=== PATIENT | female | born 1950 | race Caucasian/White ===

== ENCOUNTER 2016-10-29 17:08 | Emergency (ER) | payer MEDICARE, OTHER ==
[~2016-10-29 17:08] MED LIST: ASPIRIN EC81 MG PO; BRILINTA90 MG PO; GLUCOPHAGE 500500 MG PO; HYDREA CAP 500500 MG PO; IMDUR ER TAB 3030 MG PO; LANTUS100 UNIT/1 SC; LIPITOR TAB 2020 MG PO; LOPRESSOR 25 MG25 MG PO; NEURONTIN 400400 MG PO; NITROSTAT0.4 MG SL; PLAVIX 75 MG TA75 MG PO; PREVACID30 MG PO; ZESTRIL20 MG PO; ZITHROMAX250 MG PO; ZYLOPRIM 100 M100 MG PO; [UNRECOGNIZED DRUG - REMARK]
[2016-10-29 17:32] LABS: HEMOGLOBIN 13.1 gm/dl (12.3-15.3); RED BLOOD COUNT 4.41 M/UL (4.00-5.10); WHITE BLOOD COUNT 18.7 K/UL (4.5-11.0)
[2017-02-14] MEDS ORDERED: PLAVIX 75 MG TA75 MG PO (20:25)
[2017-02-14] MEDS ORDERED: CRESTOR40 MG PO (20:26)
== END 2016-10-29 17:37 | disposition admitted as inpatient to this hospital (09) ==
LOC: ER1 17:08
PROVIDERS: Emergency Medicine
DX: I21.09 ST elevation (STEMI) myocardial infarction involving other coronary artery of anterior wall (principal); E11.9 Type 2 diabetes mellitus without complications; I10 Essential (primary) hypertension; E78.5 Hyperlipidemia, unspecified; F17.200 Nicotine dependence, unspecified, uncomplicated; Z90.49 Acquired absence of other specified parts of digestive tract
CPT/HCPCS: 36415; 80053; 82550; 82553; 83874; 84484; 85025; 85347; 85610; 85730; 92920; 93005; 96374; 99285; C1725; C1757; C1769; C1887; J0461; J0583; J1327; J1644; J2250; J3010; J7040; Q9965

== ENCOUNTER 2020-08-22 22:06 | Inpatient (IN) | payer MEDICARE, OTHER ==
[~2020-08-22] VITALS: Ht 154.9 cm; Wt 72.3 kg
[~2020-08-22 22:06] MED LIST changes: +AMIODARONE HCL200 MG PO; +ATORVASTATIN CA20 MG PO; +BRILINTA PO; +CRESTOR 10 MG T10 MG PO; +CRESTOR40 MG PO; +DOXYCYCLINE HY100 MG PO; +DULERA 100 MCG8.8 GM INH; +ELIQUIS 5 MG TAB5 MG PO; +FERROUS SULFAT325 M2 PO; +FOSAMAX70 MG PO; +GLUCOTROL XL 22.5 MG PO; +ISOSORBIDE MONO30 MG PO; +KEFLEX250 MG PO; +LASIX20 MG PO; +LEVAQUIN500 MG PO; +MACROBID 100 M100 MG PO; +MICROZIDE12.5 MG PO; +NEURONTIN300 MG PO; +NEURONTIN600 MG PO; +NICOTINE PATCH1 EAC2 TOP; +NORCO 7.5-3251 EACH PO; +OMNICEF 300 MG300 MG PO; +TOPROL XL25 MG PO; +VENTOLIN HFA 66.7 GM INH
[2020-08-23 01:35] LABS: HEMOGLOBIN 11.8 gm/dl (12.3-15.3); RED BLOOD COUNT 4.32 M/UL (4.00-5.10); WHITE BLOOD COUNT 21.3 K/UL (4.5-11.0)
[2020-08-23 17:38] LABS: HEMOGLOBIN 12.4 gm/dl (12.3-15.3); RED BLOOD COUNT 4.5 M/UL (4.00-5.10)
[2020-08-23 17:39] LABS: WHITE BLOOD COUNT 12.4 K/UL (4.5-11.0)
[2020-08-24 01:28] LABS: HEMOGLOBIN 11.5 gm/dl (12.3-15.3); RED BLOOD COUNT 4.25 M/UL (4.00-5.10); WHITE BLOOD COUNT 13.4 K/UL (4.5-11.0)
[2020-08-25 04:50] LABS: HEMOGLOBIN 10.3 gm/dl (12.3-15.3); WHITE BLOOD COUNT 13.8 K/UL (4.5-11.0)
[2020-08-25 04:55] LABS: RED BLOOD COUNT 3.75 M/UL (4.00-5.10)
[2020-08-26 05:01] LABS: HEMOGLOBIN 11.4 gm/dl (12.3-15.3)
[2020-08-26 05:08] LABS: WHITE BLOOD COUNT 19.3 K/UL (4.5-11.0)
[2020-08-26 05:09] LABS: RED BLOOD COUNT 4.19 M/UL (4.00-5.10)
[2020-08-26 08:57] LABS: URINE TOTAL PROTEIN 115 mg/dl
[2020-08-27 03:07] LABS: HEMOGLOBIN 11.1 gm/dl (12.3-15.3); RED BLOOD COUNT 4.12 M/UL (4.00-5.10); WHITE BLOOD COUNT 17.1 K/UL (4.5-11.0)
[2020-08-28 05:50] LABS: HEMOGLOBIN 11.1 gm/dl (12.3-15.3); RED BLOOD COUNT 4.11 M/UL (4.00-5.10)
[2020-08-28 11:13] LABS: HBSAG SCREEN Negative (Negative); HEP B CORE AB, TOT Negative (Negative); HEP C VIRUS AB <0.1 (0.0-0.9)
[2020-08-28 12:13] LABS: ANTISTREPTOLYSIN O AB 332.9 IU/mL (0.0-200.0); COMPLEMENT C3, SERUM 178 mg/dL (82-167); COMPLEMENT C4, SERUM 45 mg/dL (12-38)
[2020-08-28 15:13] LABS: ANTI-DSDNA ANTIBODIES 2 IU/mL (0-9)
[2020-08-28 16:14] LABS: A/G RATIO 0.8 (0.7-1.7); ALBUMIN 2.5 g/dL (2.9-4.4); ALPHA-1-GLOBULIN 0.5 g/dL (0.0-0.4); ALPHA-2-GLOBULIN 1.3 g/dL (0.4-1.0); BETA GLOBULIN 0.9 g/dL (0.7-1.3); GAMMA GLOBULIN 0.7 g/dL (0.4-1.8); GLOBULIN, TOTAL 3.4 g/dL (2.2-3.9); IMMUNOGLOBULIN A, QN, SERUM 428 mg/dL (87-352); IMMUNOGLOBULIN G, QN, SERUM 783 mg/dL (586-1602); IMMUNOGLOBULIN M, QN, SERUM 66 mg/dL (26-217); M-SPIKE Not Observed g/dL (Not Observed); PROTEIN, TOTAL, SERUM 5.9 g/dL (6.0-8.5)
[2020-08-29 03:57] LABS: HEMOGLOBIN 11.3 gm/dl (12.3-15.3); RED BLOOD COUNT 4.16 M/UL (4.00-5.10); WHITE BLOOD COUNT 22.3 K/UL (4.5-11.0)
[2020-08-29 09:13] LABS: ATYPICAL PANCA <1:20 titer (Neg:<1:20); CYTOPLASMIC (C-ANCA) <1:20 titer (Neg:<1:20); PERINUCLEAR (P-ANCA) <1:20 titer (Neg:<1:20)
[2020-08-30 03:54] LABS: HEMOGLOBIN 10.2 gm/dl (12.3-15.3); WHITE BLOOD COUNT 26.7 K/UL (4.5-11.0)
[2020-08-30 04:00] LABS: RED BLOOD COUNT 3.73 M/UL (4.00-5.10)
[2020-08-31 04:13] LABS: RED BLOOD COUNT 3.46 M/UL (4.00-5.10); WHITE BLOOD COUNT 24.1 K/UL (4.5-11.0)
[2020-09-01 03:51] LABS: HEMOGLOBIN 9.8 gm/dl (12.3-15.3); RED BLOOD COUNT 3.67 M/UL (4.00-5.10); WHITE BLOOD COUNT 24.4 K/UL (4.5-11.0)
[2020-09-02 04:54] LABS: HEMOGLOBIN 9.4 gm/dl (12.3-15.3); RED BLOOD COUNT 3.53 M/UL (4.00-5.10); WHITE BLOOD COUNT 16.5 K/UL (4.5-11.0)
[2020-09-03 04:10] LABS: HEMOGLOBIN 9.9 gm/dl (12.3-15.3); RED BLOOD COUNT 3.75 M/UL (4.00-5.10); WHITE BLOOD COUNT 18.4 K/UL (4.5-11.0)
[2020-09-04 05:44] LABS: HEMOGLOBIN 9.9 gm/dl (12.3-15.3); RED BLOOD COUNT 3.69 M/UL (4.00-5.10); WHITE BLOOD COUNT 18.7 K/UL (4.5-11.0)
[2020-09-05 06:46] LABS: HEMOGLOBIN 9.6 gm/dl (12.3-15.3); RED BLOOD COUNT 3.7 M/UL (4.00-5.10); WHITE BLOOD COUNT 21.1 K/UL (4.5-11.0)
[2020-09-06 04:53] LABS: HEMOGLOBIN 8.9 gm/dl (12.3-15.3); WHITE BLOOD COUNT 17.6 K/UL (4.5-11.0)
[2020-09-06 04:54] LABS: RED BLOOD COUNT 3.31 M/UL (4.00-5.10)
[2020-09-06 19:09] LABS: QUANTIFERON MITOGEN VALUE 8.88 IU/mL (.); QUANTIFERON NIL VALUE 0.03 IU/mL (.); QUANTIFERON TB1 AG VALUE 0.04 IU/mL (.); QUANTIFERON TB2 AG VALUE 0.03 IU/mL (.); QUANTIFERON-TB GOLD PLUS Negative (Negative)
[2020-09-07 06:00] LABS: HEMOGLOBIN 9.1 gm/dl (12.3-15.3); RED BLOOD COUNT 3.41 M/UL (4.00-5.10); WHITE BLOOD COUNT 16.2 K/UL (4.5-11.0)
--- NOTE | 2020-09-07 15:11 | NUR ---
DR. LOZANO ON THE FLOOR AND SEEN PATIENT, PULSE AT 69.
[2020-09-08 05:59] LABS: HEMOGLOBIN 10.3 gm/dl (12.3-15.3); RED BLOOD COUNT 3.87 M/UL (4.00-5.10); WHITE BLOOD COUNT 14.5 K/UL (4.5-11.0)
[2020-09-09 04:11] LABS: HEMOGLOBIN 9.3 gm/dl (12.3-15.3); RED BLOOD COUNT 3.5 M/UL (4.00-5.10); WHITE BLOOD COUNT 17.6 K/UL (4.5-11.0)
[2020-09-10 05:58] LABS: HEMOGLOBIN 8.6 gm/dl (12.3-15.3); RED BLOOD COUNT 3.18 M/UL (4.00-5.10); WHITE BLOOD COUNT 19.1 K/UL (4.5-11.0)
[2020-09-12 03:43] LABS: HEMOGLOBIN 8.2 gm/dl (12.3-15.3); RED BLOOD COUNT 3.16 M/UL (4.00-5.10)
[2020-09-12 03:56] LABS: WHITE BLOOD COUNT 10.5 K/UL (4.5-11.0)
--- NOTE | 2020-09-12 15:02 | NUR ---
Spoke with LYNDON Rahman re: need for midline. Pt's GFR is 35. Midline/PICC line not approved by Dr. Chaney at present time.
[2020-09-13 05:08] LABS: HEMOGLOBIN 7.7 gm/dl (12.3-15.3); RED BLOOD COUNT 2.94 M/UL (4.00-5.10); WHITE BLOOD COUNT 9.2 K/UL (4.5-11.0)
[2020-09-14 05:52] LABS: HEMOGLOBIN 8.3 gm/dl (12.3-15.3); RED BLOOD COUNT 3.13 M/UL (4.00-5.10); WHITE BLOOD COUNT 11.1 K/UL (4.5-11.0)
[2020-09-15 08:32] LABS: HEMOGLOBIN 8.7 gm/dl (12.3-15.3); RED BLOOD COUNT 3.28 M/UL (4.00-5.10); WHITE BLOOD COUNT 11.1 K/UL (4.5-11.0)
[2020-09-17 04:57] LABS: HEMOGLOBIN 8.2 gm/dl (12.3-15.3); RED BLOOD COUNT 3.12 M/UL (4.00-5.10)
--- NOTE | 2020-09-17 13:00 | NUR ---
SPOKE WITH PATIENT'S DAUGHTER NIKUNJ REJI STATED PATIENT'S HAIR WAS MATTED AND HAD KNOTS IN BEFORE ADMISSION TO HOSPITAL.
--- NOTE | 2020-09-17 16:29 | NUR ---
PER DR. ZAHIRA TRAN ON PLACEMENT OF IJ LINE. SPOKE WITH HIM OVER PHONE TO CONFIRM OKAY ON PLACEMENT.
[2020-09-22 06:10] LABS: HEMOGLOBIN 8.8 gm/dl (12.3-15.3); RED BLOOD COUNT 3.32 M/UL (4.00-5.10); WHITE BLOOD COUNT 10.3 K/UL (4.5-11.0)
[2020-09-28 02:54] LABS: RED BLOOD COUNT 3.02 M/UL (4.00-5.10); WHITE BLOOD COUNT 10.6 K/UL (4.5-11.0)
[2020-09-30 10:37] LABS: HEMOGLOBIN 8.8 gm/dl (12.3-15.3); RED BLOOD COUNT 3.3 M/UL (4.00-5.10)
[2020-10-02] MEDS ORDERED: ELIQUIS 5 MG TAB5 MG PO (13:15)
[2020-10-02] MEDS ORDERED: LANTUS INS100 UTS/M1 SQ (13:15)
[2020-10-02] MEDS ORDERED: ZYVOX600 MG PO (13:15)
[2020-10-02] MEDS ORDERED: FERROUS SULFAT325 M2 PO (13:15)
[2020-10-02] MEDS ORDERED: CRESTOR 10 MG T10 MG PO (13:15)
[2020-10-02] MEDS ORDERED: TAB-A-VITE TA400 MC1 PO (13:15)
[2020-10-02] MEDS ORDERED: METOPROLOL SUCC50 MG PO (13:15)
[2020-10-02] MEDS ORDERED: VITAMIN B-1100 M1 PO (13:15)
[2020-10-02] MEDS ORDERED: FOLIC ACID 1 MG1 MG PO (13:15)
== END 2020-10-03 16:25 | DRG 871 ==
LOC: ER1 22:06 → CCU 08-23 04:50 → CDU 08-23 04:50 → M/S 08-23 04:50 → CCU 08-23 06:20 → M/S 09-02 10:43 → PROG CARE 09-15 20:01 → M/S 09-15 21:07
PROVIDERS: Family Medicine; Hospitalist; Internal Medicine; Internal Medicine Nephrology; Internal Medicine Pulmonary Disease; Surgery; ADMIT Internal Medicine
PROC: 5A09457 Assistance with Respiratory Ventilation, 24-96 Consecutive Hours, Continuous Positive Airway Pressure (ICD-10-PCS; 2020-08-23)
PROC: B24BZZZ Ultrasonography of Heart with Aorta (ICD-10-PCS; principal; 2020-08-24)
PROC: B24BZZZ Ultrasonography of Heart with Aorta (ICD-10-PCS; 2020-09-04)
DX: A41.02 Sepsis due to Methicillin resistant Staphylococcus aureus (principal); J96.01 Acute respiratory failure with hypoxia; R65.21 Severe sepsis with septic shock; J15.212 Pneumonia due to Methicillin resistant Staphylococcus aureus; G93.41 Metabolic encephalopathy; I26.99 Other pulmonary embolism without acute cor pulmonale; N17.0 Acute kidney failure with tubular necrosis; G92 Toxic encephalopathy; I50.43 Acute on chronic combined systolic (congestive) and diastolic (congestive) heart failure; J44.0 Chronic obstructive pulmonary disease with (acute) lower respiratory infection; E11.52 Type 2 diabetes mellitus with diabetic peripheral angiopathy with gangrene; I96 Gangrene, not elsewhere classified; E87.2 Acidosis; F11.13 Opioid abuse with withdrawal; J44.1 Chronic obstructive pulmonary disease with (acute) exacerbation; I13.0 Hypertensive heart and chronic kidney disease with heart failure and stage 1 through stage 4 chronic kidney disease, or unspecified chronic kidney disease; N30.01 Acute cystitis with hematuria; M62.82 Rhabdomyolysis; B37.0 Candidal stomatitis; E87.1 Hypo-osmolality and hyponatremia; T40.601A Poisoning by unspecified narcotics, accidental (unintentional), initial encounter; A41.51 Sepsis due to Escherichia coli [E. coli]; T43.621A Poisoning by amphetamines, accidental (unintentional), initial encounter; I25.5 Ischemic cardiomyopathy; E11.65 Type 2 diabetes mellitus with hyperglycemia; Z20.822 Contact with and (suspected) exposure to COVID-19; I25.10 Atherosclerotic heart disease of native coronary artery without angina pectoris; R00.1 Bradycardia, unspecified; E87.5 Hyperkalemia; E11.22 Type 2 diabetes mellitus with diabetic chronic kidney disease; N18.30 Chronic kidney disease, stage 3 unspecified; I48.0 Paroxysmal atrial fibrillation; F17.210 Nicotine dependence, cigarettes, uncomplicated; R94.31 Abnormal electrocardiogram [ECG] [EKG]; D64.9 Anemia, unspecified; G89.4 Chronic pain syndrome; Z66 Do not resuscitate; R80.9 Proteinuria, unspecified; R82.4 Acetonuria; R29.810 Facial weakness; D47.3 Essential (hemorrhagic) thrombocythemia; F32.9 Major depressive disorder, single episode, unspecified; E78.5 Hyperlipidemia, unspecified; Z90.49 Acquired absence of other specified parts of digestive tract; I25.2 Old myocardial infarction; Z86.73 Personal history of transient ischemic attack (TIA), and cerebral infarction without residual deficits; Z79.01 Long term (current) use of anticoagulants; Z95.5 Presence of coronary angioplasty implant and graft; Z82.49 Family history of ischemic heart disease and other diseases of the circulatory system; Z79.899 Other long term (current) drug therapy
CPT/HCPCS: ECHO; 36415; 36600; 70450; 70551; 71045; 71250; 74230; 80048; 80053; 80202; 80307; 81001; 82009; 82550; 82553; 82565; 82570; 82784; 82803; 82962; 83036; 83520; 83605; 83615; 83735; 83874; 83880; 83883; 84100; 84155; 84156; 84165; 84484; 85018; 85025; 85027; 85610; 85652; 85730; 86038; 86060; 86140; 86160; 86162; 86225; 86256; 86334; 86704; 86706; 86708; 86803; 87040; 87070; 87077; 87081; 87086; 87186; 87205; 87340; 92526; 92610; 92611-GN; 93005; 93306; 93925; 94640; 94660; 94664; 94760; 96365; 96372; 96376; 97110; 97110-GP-CQ; 97163; 97166; 97530; 97530-GP-CQ; 97535; 99285; A6212; C9113; J0456; J0696; J1205; J1335; J1630; J1644; J1940; J2020; J2060; J2185; J2310; J2543; J2930; J2997; J3370; J3411; J3486; J7030; J7040; J7050; J7070; U0002

== ENCOUNTER 2020-10-10 09:57 | Observation (INO) | payer MEDICARE, OTHER ==
[~2020-10-10] VITALS: Ht 161.3 cm; Wt 73.5 kg
[~2020-10-10 09:57] MED LIST changes: +FOLIC ACID 1 MG1 MG PO; +LANTUS INS100 UTS/M1 SQ; +METOPROLOL SUCC50 MG PO; +TAB-A-VITE TA400 MC1 PO; +VITAMIN B-1100 M1 PO; +ZYVOX600 MG PO
[2020-10-10 14:39] LABS: HEMOGLOBIN 8.7 gm/dl (12.3-15.3); RED BLOOD COUNT 3.22 M/UL (4.00-5.10); WHITE BLOOD COUNT 16.2 K/UL (4.5-11.0)
[2020-10-10] MEDS ORDERED: ZYVOX600 MG PO (20:36)
[2020-10-10] MEDS ORDERED: FISH OIL 500 M1 EAC2 PO (20:36)
[2020-10-10] MEDS ORDERED: WOMEN'S 50 PLU1 EACH PO (20:37)
[2020-10-10] MEDS ORDERED: TYLENOL 500 MG500 MG PO (20:37)
[2020-10-13 04:55] LABS: WHITE BLOOD COUNT 12.2 K/UL (4.5-11.0)
[2020-10-13 04:57] LABS: RED BLOOD COUNT 2.6 M/UL (4.00-5.10)
[2020-10-13 04:58] LABS: HEMOGLOBIN 6.9 gm/dl (12.3-15.3)
[2020-10-14 04:53] LABS: HEMOGLOBIN 8.4 gm/dl (12.3-15.3); WHITE BLOOD COUNT 12.8 K/UL (4.5-11.0)
[2020-10-14 04:58] LABS: RED BLOOD COUNT 3.12 M/UL (4.00-5.10)
[2020-10-16] MEDS ORDERED: HYDROCODON-ACE1 EAC2 PO (10:27)
[2020-10-16 11:33] LABS: HEMOGLOBIN 8.7 gm/dl (12.3-15.3); RED BLOOD COUNT 3.16 M/UL (4.00-5.10); WHITE BLOOD COUNT 10.4 K/UL (4.5-11.0)
== END 2020-10-16 18:50 ==
LOC: ER1 09:57 → MED SURG 4 14:06 → CDU 14:06 → MED SURG 4 14:06
PROVIDERS: Internal Medicine; Physician Assistant; Physician Assistant Medical; ADMIT Internal Medicine
DX: S82.842A Displaced bimalleolar fracture of left lower leg, initial encounter for closed fracture (principal); I13.0 Hypertensive heart and chronic kidney disease with heart failure and stage 1 through stage 4 chronic kidney disease, or unspecified chronic kidney disease; E11.22 Type 2 diabetes mellitus with diabetic chronic kidney disease; I50.22 Chronic systolic (congestive) heart failure; N18.4 Chronic kidney disease, stage 4 (severe); I25.5 Ischemic cardiomyopathy; J44.9 Chronic obstructive pulmonary disease, unspecified; D63.1 Anemia in chronic kidney disease; E11.52 Type 2 diabetes mellitus with diabetic peripheral angiopathy with gangrene; I96 Gangrene, not elsewhere classified; E11.621 Type 2 diabetes mellitus with foot ulcer; L97.529 Non-pressure chronic ulcer of other part of left foot with unspecified severity; L97.519 Non-pressure chronic ulcer of other part of right foot with unspecified severity; I48.0 Paroxysmal atrial fibrillation; I25.10 Atherosclerotic heart disease of native coronary artery without angina pectoris; I25.2 Old myocardial infarction; Z20.822 Contact with and (suspected) exposure to COVID-19; Z87.01 Personal history of pneumonia (recurrent); Z95.5 Presence of coronary angioplasty implant and graft; Z87.891 Personal history of nicotine dependence; Z98.890 Other specified postprocedural states; Z82.49 Family history of ischemic heart disease and other diseases of the circulatory system; Z79.4 Long term (current) use of insulin; Z79.01 Long term (current) use of anticoagulants; Z79.899 Other long term (current) drug therapy; W19.XXXA Unspecified fall, initial encounter
CPT/HCPCS: 29515; 36415; 36430; 70450; 71045; 73502; 73564; 73610; 80048; 80053; 82272; 82728; 82962; 83540; 83550; 83880; 85025; 85045; 86850; 86900; 86901; 86920; 90471; 96372; 96374; 96376; 97110; 97110-GP-CQ; 97161; 97530; 97530-GP-CQ; 99284; G0378; J2270; J7050; P9016; U0002

== ENCOUNTER → 2020-10-30 | Outpatient (CLI) | payer MEDICARE, OTHER ==
[~2020-10-30] MED LIST changes: +FISH OIL 500 M1 EAC2 PO; +HYDROCODON-ACE1 EAC2 PO; +TYLENOL 500 MG500 MG PO; +WOMEN'S 50 PLU1 EACH PO
== END ==
LOC: KOH-I 13:29
DX: M25.572 Pain in left ankle and joints of left foot (principal); S82.832A Other fracture of upper and lower end of left fibula, initial encounter for closed fracture; S93.05XA Dislocation of left ankle joint, initial encounter
CPT/HCPCS: 73610

== ENCOUNTER → 2020-11-03 | Outpatient (CLI) | payer MEDICARE, OTHER | LOC: WCC 12:57 | DX: I96 Gangrene, not elsewhere classified (principal); L89.890 Pressure ulcer of other site, unstageable; E11.52 Type 2 diabetes mellitus with diabetic peripheral angiopathy with gangrene; J44.9 Chronic obstructive pulmonary disease, unspecified; I48.20 Chronic atrial fibrillation, unspecified; I11.0 Hypertensive heart disease with heart failure; I50.9 Heart failure, unspecified; E11.40 Type 2 diabetes mellitus with diabetic neuropathy, unspecified; E11.59 Type 2 diabetes mellitus with other circulatory complications; I48.91 Unspecified atrial fibrillation; F17.219 Nicotine dependence, cigarettes, with unspecified nicotine-induced disorders; Z79.4 Long term (current) use of insulin; Z91.19 Patient's noncompliance with other medical treatment and regimen; Z80.9 Family history of malignant neoplasm, unspecified; Z82.49 Family history of ischemic heart disease and other diseases of the circulatory system; Z83.3 Family history of diabetes mellitus | CPT/HCPCS: 87070; 87077; 87186; 87205; 97597; 97598 ==

== ENCOUNTER → 2020-11-11 | Outpatient (CLI) | payer MEDICARE, OTHER | LOC: HEART 5 10:46 | DX: R06.02 Shortness of breath (principal); J98.4 Other disorders of lung | CPT/HCPCS: 71046 ==

== ENCOUNTER → 2020-11-17 | Outpatient (CLI) | payer MEDICARE, OTHER | LOC: WCC 13:00 | PROC: 0JBR0ZZ Excision of Left Foot Subcutaneous Tissue and Fascia, Open Approach (ICD-10-PCS; principal; 2020-11-17) | PROC: 0JBQ0ZZ Excision of Right Foot Subcutaneous Tissue and Fascia, Open Approach (ICD-10-PCS; 2020-11-17) | DX: I96 Gangrene, not elsewhere classified (principal); L89.890 Pressure ulcer of other site, unstageable; E11.52 Type 2 diabetes mellitus with diabetic peripheral angiopathy with gangrene; J44.9 Chronic obstructive pulmonary disease, unspecified; I11.0 Hypertensive heart disease with heart failure; I50.9 Heart failure, unspecified; I48.20 Chronic atrial fibrillation, unspecified; E11.40 Type 2 diabetes mellitus with diabetic neuropathy, unspecified; E11.59 Type 2 diabetes mellitus with other circulatory complications; E11.36 Type 2 diabetes mellitus with diabetic cataract; H26.9 Unspecified cataract; I25.10 Atherosclerotic heart disease of native coronary artery without angina pectoris; I25.2 Old myocardial infarction; M19.90 Unspecified osteoarthritis, unspecified site; Z91.19 Patient's noncompliance with other medical treatment and regimen; Z79.01 Long term (current) use of anticoagulants; Z79.4 Long term (current) use of insulin; Z79.899 Other long term (current) drug therapy | CPT/HCPCS: 97597 ==

== ENCOUNTER → 2020-11-27 | Outpatient (CLI) | payer MEDICARE, OTHER | LOC: KOH-I 13:53 | DX: S82.832D Other fracture of upper and lower end of left fibula, subsequent encounter for closed fracture with routine healing (principal) | CPT/HCPCS: 73610 ==

== ENCOUNTER → 2020-12-01 | Outpatient (CLI) | payer MEDICARE, OTHER | LOC: WCC 13:00 | DX: E11.52 Type 2 diabetes mellitus with diabetic peripheral angiopathy with gangrene (principal); I96 Gangrene, not elsewhere classified; L89.890 Pressure ulcer of other site, unstageable; E11.40 Type 2 diabetes mellitus with diabetic neuropathy, unspecified; E11.59 Type 2 diabetes mellitus with other circulatory complications; I11.0 Hypertensive heart disease with heart failure; I50.9 Heart failure, unspecified; J44.9 Chronic obstructive pulmonary disease, unspecified; I48.20 Chronic atrial fibrillation, unspecified; M79.661 Pain in right lower leg; M79.662 Pain in left lower leg; Z91.19 Patient's noncompliance with other medical treatment and regimen; Z79.4 Long term (current) use of insulin; Z79.01 Long term (current) use of anticoagulants; Z79.899 Other long term (current) drug therapy | CPT/HCPCS: 97597; 97598 ==

== ENCOUNTER → 2020-12-15 | Outpatient (CLI) | payer MEDICARE, OTHER | LOC: WCC 13:00 | DX: E11.52 Type 2 diabetes mellitus with diabetic peripheral angiopathy with gangrene (principal); L89.620 Pressure ulcer of left heel, unstageable; L89.890 Pressure ulcer of other site, unstageable; E11.40 Type 2 diabetes mellitus with diabetic neuropathy, unspecified; I11.0 Hypertensive heart disease with heart failure; I50.9 Heart failure, unspecified; J44.9 Chronic obstructive pulmonary disease, unspecified; I48.20 Chronic atrial fibrillation, unspecified; Z79.4 Long term (current) use of insulin; Z91.19 Patient's noncompliance with other medical treatment and regimen | CPT/HCPCS: 87070; 87077; 87186; 87205 ==

== ENCOUNTER → 2020-12-18 | Outpatient (CLI) | payer MEDICARE, OTHER | LOC: KOH-I 14:06 | DX: S82.832A Other fracture of upper and lower end of left fibula, initial encounter for closed fracture (principal) | CPT/HCPCS: 73610 ==

== ENCOUNTER → 2020-12-23 | Outpatient (CLI) | payer MEDICARE, OTHER | LOC: WCC 11:30 | DX: E11.621 Type 2 diabetes mellitus with foot ulcer (principal); L97.429 Non-pressure chronic ulcer of left heel and midfoot with unspecified severity; L97.519 Non-pressure chronic ulcer of other part of right foot with unspecified severity; I11.0 Hypertensive heart disease with heart failure; I50.9 Heart failure, unspecified; E11.59 Type 2 diabetes mellitus with other circulatory complications; E11.40 Type 2 diabetes mellitus with diabetic neuropathy, unspecified; E11.52 Type 2 diabetes mellitus with diabetic peripheral angiopathy with gangrene; J44.9 Chronic obstructive pulmonary disease, unspecified; I48.20 Chronic atrial fibrillation, unspecified; Z79.4 Long term (current) use of insulin; Z91.19 Patient's noncompliance with other medical treatment and regimen; M79.661 Pain in right lower leg; M79.662 Pain in left lower leg | CPT/HCPCS: 97597 ==

== ENCOUNTER → 2021-01-06 | Outpatient (CLI) | payer MEDICARE, OTHER | LOC: WCC 13:00 | DX: L89.890 Pressure ulcer of other site, unstageable (principal); E11.52 Type 2 diabetes mellitus with diabetic peripheral angiopathy with gangrene; E11.40 Type 2 diabetes mellitus with diabetic neuropathy, unspecified; E11.59 Type 2 diabetes mellitus with other circulatory complications; J44.9 Chronic obstructive pulmonary disease, unspecified; I13.0 Hypertensive heart and chronic kidney disease with heart failure and stage 1 through stage 4 chronic kidney disease, or unspecified chronic kidney disease; E11.22 Type 2 diabetes mellitus with diabetic chronic kidney disease; N18.30 Chronic kidney disease, stage 3 unspecified; I50.9 Heart failure, unspecified; I48.20 Chronic atrial fibrillation, unspecified; Z91.19 Patient's noncompliance with other medical treatment and regimen; Z79.4 Long term (current) use of insulin; Z79.01 Long term (current) use of anticoagulants; Z79.899 Other long term (current) drug therapy | CPT/HCPCS: 97597 ==

== ENCOUNTER → 2021-01-07 | Outpatient (CLI) | payer MEDICARE, OTHER | LOC: KOH-I 09:46 | DX: D35.00 Benign neoplasm of unspecified adrenal gland (principal); N26.1 Atrophy of kidney (terminal); N18.30 Chronic kidney disease, stage 3 unspecified | CPT/HCPCS: 74150 ==

== ENCOUNTER → 2021-01-09 | Outpatient (CLI) | payer MEDICARE, OTHER | LOC: CT 11:25 | DX: J41.0 Simple chronic bronchitis (principal); R06.00 Dyspnea, unspecified; R06.02 Shortness of breath; Z87.01 Personal history of pneumonia (recurrent); R91.8 Other nonspecific abnormal finding of lung field | CPT/HCPCS: 71250 ==

== ENCOUNTER → 2021-01-20 | Outpatient (CLI) | payer MEDICARE, OTHER | LOC: WCC 13:00 | DX: L89.890 Pressure ulcer of other site, unstageable (principal); J44.9 Chronic obstructive pulmonary disease, unspecified; E11.52 Type 2 diabetes mellitus with diabetic peripheral angiopathy with gangrene; E11.40 Type 2 diabetes mellitus with diabetic neuropathy, unspecified; E11.59 Type 2 diabetes mellitus with other circulatory complications; I11.0 Hypertensive heart disease with heart failure; I50.9 Heart failure, unspecified; I48.20 Chronic atrial fibrillation, unspecified; Z91.19 Patient's noncompliance with other medical treatment and regimen; Z79.4 Long term (current) use of insulin; Z79.01 Long term (current) use of anticoagulants; Z79.899 Other long term (current) drug therapy | CPT/HCPCS: 97597 ==

== ENCOUNTER → 2021-02-03 | Outpatient (CLI) | payer MEDICARE, OTHER | LOC: WCC 13:10 | DX: L89.620 Pressure ulcer of left heel, unstageable (principal); L89.890 Pressure ulcer of other site, unstageable; I11.0 Hypertensive heart disease with heart failure; I50.9 Heart failure, unspecified; I48.20 Chronic atrial fibrillation, unspecified; E11.51 Type 2 diabetes mellitus with diabetic peripheral angiopathy without gangrene; E11.40 Type 2 diabetes mellitus with diabetic neuropathy, unspecified; E11.59 Type 2 diabetes mellitus with other circulatory complications; Z91.19 Patient's noncompliance with other medical treatment and regimen; M79.662 Pain in left lower leg; M79.661 Pain in right lower leg; J44.9 Chronic obstructive pulmonary disease, unspecified; Z79.4 Long term (current) use of insulin ==

== ENCOUNTER → 2021-02-17 | Outpatient (CLI) | payer MEDICARE, OTHER ==
[~2021-02-17] MED LIST changes: +BRILINTA60 MG PO; +COLCHICINE0.6 M1 PO; +ESCITALOPRAM OX10 MG PO; +HYDROXYUREA500 MG PO; +SULFAMETHOXAZO1 EACH PO; +ZYLOPRIM100 MG PO
== END ==
LOC: KOH-I 14:04
DX: S82.402A Unspecified fracture of shaft of left fibula, initial encounter for closed fracture (principal); S82.402D Unspecified fracture of shaft of left fibula, subsequent encounter for closed fracture with routine healing
CPT/HCPCS: 73610

== ENCOUNTER → 2021-02-19 | Outpatient (CLI) | payer MEDICARE, OTHER | LOC: WCC 13:13 | PROC: 0JBR0ZZ Excision of Left Foot Subcutaneous Tissue and Fascia, Open Approach (ICD-10-PCS; principal; 2021-02-19) | DX: I96 Gangrene, not elsewhere classified (principal); L89.620 Pressure ulcer of left heel, unstageable; L89.890 Pressure ulcer of other site, unstageable; E11.52 Type 2 diabetes mellitus with diabetic peripheral angiopathy with gangrene; E11.40 Type 2 diabetes mellitus with diabetic neuropathy, unspecified; E11.59 Type 2 diabetes mellitus with other circulatory complications; J44.9 Chronic obstructive pulmonary disease, unspecified; I11.0 Hypertensive heart disease with heart failure; I50.9 Heart failure, unspecified; I48.20 Chronic atrial fibrillation, unspecified; E11.36 Type 2 diabetes mellitus with diabetic cataract; H26.9 Unspecified cataract; D64.9 Anemia, unspecified; I25.10 Atherosclerotic heart disease of native coronary artery without angina pectoris; I25.2 Old myocardial infarction; M19.90 Unspecified osteoarthritis, unspecified site; Z91.19 Patient's noncompliance with other medical treatment and regimen; Z79.01 Long term (current) use of anticoagulants; Z79.4 Long term (current) use of insulin; Z79.899 Other long term (current) drug therapy | CPT/HCPCS: 97597 ==

== ENCOUNTER → 2021-03-12 | Outpatient (CLI) | payer MEDICARE, OTHER | LOC: WCC 08:31 | DX: L89.890 Pressure ulcer of other site, unstageable (principal); E11.52 Type 2 diabetes mellitus with diabetic peripheral angiopathy with gangrene; J44.9 Chronic obstructive pulmonary disease, unspecified; I13.0 Hypertensive heart and chronic kidney disease with heart failure and stage 1 through stage 4 chronic kidney disease, or unspecified chronic kidney disease; E11.22 Type 2 diabetes mellitus with diabetic chronic kidney disease; N18.30 Chronic kidney disease, stage 3 unspecified; I50.9 Heart failure, unspecified; I48.20 Chronic atrial fibrillation, unspecified; E11.40 Type 2 diabetes mellitus with diabetic neuropathy, unspecified; E11.59 Type 2 diabetes mellitus with other circulatory complications; Z91.19 Patient's noncompliance with other medical treatment and regimen; Z79.4 Long term (current) use of insulin; Z79.01 Long term (current) use of anticoagulants; Z79.899 Other long term (current) drug therapy ==

== ENCOUNTER → 2021-03-26 | Outpatient (CLI) | payer MEDICARE, OTHER | LOC: WCC 13:30 | DX: L89.890 Pressure ulcer of other site, unstageable (principal); E11.51 Type 2 diabetes mellitus with diabetic peripheral angiopathy without gangrene; J44.9 Chronic obstructive pulmonary disease, unspecified; I50.9 Heart failure, unspecified; I48.20 Chronic atrial fibrillation, unspecified; I11.0 Hypertensive heart disease with heart failure; Z79.4 Long term (current) use of insulin; E11.40 Type 2 diabetes mellitus with diabetic neuropathy, unspecified; Z91.19 Patient's noncompliance with other medical treatment and regimen; L89.629 Pressure ulcer of left heel, unspecified stage ==

== ENCOUNTER → 2021-03-31 | Outpatient (CLI) | payer MEDICARE, OTHER ==
[~2021-03-31] MED LIST changes: -BRILINTA60 MG PO; -COLCHICINE0.6 M1 PO; -ESCITALOPRAM OX10 MG PO; -HYDROXYUREA500 MG PO; -SULFAMETHOXAZO1 EACH PO; -ZYLOPRIM100 MG PO
== END ==
LOC: KOH-I 13:35
DX: S89.302A Unspecified physeal fracture of lower end of left fibula, initial encounter for closed fracture (principal)
CPT/HCPCS: 73610

== ENCOUNTER → 2021-04-09 | Outpatient (CLI) | payer MEDICARE, OTHER | LOC: WCC 13:20 | PROC: 0JBR0ZZ Excision of Left Foot Subcutaneous Tissue and Fascia, Open Approach (ICD-10-PCS; principal; 2021-04-09) | PROC: 0JBQ0ZZ Excision of Right Foot Subcutaneous Tissue and Fascia, Open Approach (ICD-10-PCS; 2021-04-09) | DX: I96 Gangrene, not elsewhere classified (principal); L89.623 Pressure ulcer of left heel, stage 3; L89.890 Pressure ulcer of other site, unstageable; E11.52 Type 2 diabetes mellitus with diabetic peripheral angiopathy with gangrene; I11.0 Hypertensive heart disease with heart failure; I50.9 Heart failure, unspecified; J44.9 Chronic obstructive pulmonary disease, unspecified; I48.20 Chronic atrial fibrillation, unspecified; E11.59 Type 2 diabetes mellitus with other circulatory complications; E11.40 Type 2 diabetes mellitus with diabetic neuropathy, unspecified; E11.36 Type 2 diabetes mellitus with diabetic cataract; H26.9 Unspecified cataract; I25.10 Atherosclerotic heart disease of native coronary artery without angina pectoris; I25.2 Old myocardial infarction; M19.90 Unspecified osteoarthritis, unspecified site; Z79.01 Long term (current) use of anticoagulants; Z79.4 Long term (current) use of insulin; Z79.899 Other long term (current) drug therapy; Z91.14 Patient's other noncompliance with medication regimen ==

== ENCOUNTER 2021-04-23 13:38 | Inpatient (IN) | payer MEDICARE, OTHER ==
[~2021-04-23] VITALS: Ht 160 cm; Wt 65.8 kg
[2021-04-23 16:31] LABS: RED BLOOD COUNT 4.18 M/UL (4.00-5.10); WHITE BLOOD COUNT 20.4 K/UL (4.5-11.0)
[2021-04-24] MEDS ORDERED: ESCITALOPRAM OX10 MG PO (02:01)
[2021-04-24] MEDS ORDERED: COLCHICINE0.6 M1 PO (02:01)
[2021-04-24] MEDS ORDERED: HYDROXYUREA500 MG PO (02:02)
[2021-04-24] MEDS ORDERED: ZYLOPRIM100 MG PO (02:03)
[2021-04-24 08:00] LABS: HEMOGLOBIN 9.1 gm/dl (12.3-15.3); WHITE BLOOD COUNT 17.3 K/UL (4.5-11.0)
[2021-04-24 08:09] LABS: RED BLOOD COUNT 3.47 M/UL (4.00-5.10)
[2021-04-24 14:01] LABS: ACINETOBACTER BAUMANNII Not Detected (Negative); CANDIDA ALBICANS Not Detected (Negative); CANDIDA KRUSEI Not Detected (Negative); CANDIDA TROPICALIS Not Detected (Negative); ENTEROCOCCUS Not Detected (Negative); HAEMOPHILUS INFLUENZAE Not Detected (Negative); KLEBSIELLA OXYTOCA Not Detected (Negative); KLEBSIELLA PNEUMONIAE Not Detected (Negative); KPC-CARBAPENEM-RESISTANCE GENE Not Detected (Negative); PROTEUS Not Detected (Negative); PSEUDOMONAS AERUGINOSA Not Detected (Negative); SERRATIA MARCESANS Not Detected (Negative); STAPHYLOCOCCUS Not Detected (Negative); STAPHYLOCOCCUS AUREUS Not Detected (Negative); STREP AGALACTIAE (GROUP B) Not Detected (Negative); STREP PYOGENES (GROUP A) Not Detected (Negative); STREPTOCOCCUS Not Detected (Negative); mecA (METHICILLIN RESIST GENE Not Detected (Negative); vanA/B (VANCOMYCIN RESIST GENE Not Detected (Negative)
[2021-04-24 16:46] LABS: ESCHERICHIA COLI DETECTED (Negative)
[2021-04-25 07:44] LABS: RED BLOOD COUNT 3.41 M/UL (4.00-5.10); WHITE BLOOD COUNT 13.1 K/UL (4.5-11.0)
[2021-04-26 07:40] LABS: HEMOGLOBIN 9.4 gm/dl (12.3-15.3); RED BLOOD COUNT 3.63 M/UL (4.00-5.10); WHITE BLOOD COUNT 10.4 K/UL (4.5-11.0)
--- NOTE | 2021-04-26 18:14 | NUR ---
MD MADE AWARE OF PT REFUSING IV AT THIS TIME... PT REFUSING MEDICATION, PULLED IV OUT AND REFUSES TO BE STUCK AT THIS TIME.
[2021-04-27 07:07] LABS: HEMOGLOBIN 9.5 gm/dl (12.3-15.3); RED BLOOD COUNT 3.65 M/UL (4.00-5.10); WHITE BLOOD COUNT 11.6 K/UL (4.5-11.0)
[2021-04-27] MEDS ORDERED: BRILINTA60 MG PO (13:42)
[2021-04-28 07:07] LABS: HEMOGLOBIN 9.2 gm/dl (12.3-15.3); RED BLOOD COUNT 3.47 M/UL (4.00-5.10); WHITE BLOOD COUNT 11.1 K/UL (4.5-11.0)
--- NOTE | 2021-04-28 13:08 | NUR ---
PATIENT HAS SLEPT MOST OF THE DAY. PATIENT IS AGGITATED AND HAS REFUSED ALL MEDICATIONS EXCEPT IV MEDICATIONS. SHE HAS BEEN ARGUMENTAIVE AND ASKED TO BE LEFT ALONE WHEN ASKED TO PLEASE TAKE HER MEDICATIONS. WILL CONTINUE TO MONITOR.
--- NOTE | 2021-04-29 23:02 | NUR ---
AT 2049 PT IS LAYING IN BED WITH IV LAYING IN THE FLOOR. TOLD PT I WILL HAVE TO PUT ANOHTER IN. PT STATES WILL JUST RIP OUT ANOTHER IV IF I PUT IT IN. WILL TRY AGAIN LATER FOR NEW IV.
--- NOTE | 2021-04-30 01:41 | NUR ---
ATTEMPTED TO PLACE IV AGAIN, PT STATES NO, I TRY TELLING HER THAT SHE HAS FLUIDS THAT SHE NEEDS, SHE STATES NO AGAIN AND TELLS ME TO LEAVE HER ALONE.
--- NOTE | 2021-04-30 05:34 | NUR ---
ATTEMPTED AGAIN TO PUT IV IN. PT WILL NOT ALLOW ME TO SEE HER ARMS THAT ARE UNDER HER COVER. WHEN ADVISING THE PT OF THE NEED OF IT SHE TOLD ME TO GET LOST AND TO LEAVE HER ALONE. NOTIFIED DR. PAINTING OF THIS.
[2021-04-30] MEDS ORDERED: SULFAMETHOXAZO1 EACH PO (14:21)
--- NOTE | 2021-04-30 14:45 | NUR ---
PATIENT STILL HAS NO IV ACCESS AND REFUSES TO HAVE ONE STARTED. PROVIDER IS AWARE.
== END 2021-04-30 17:45 | DRG 871 ==
LOC: ER1 13:38 → CDU 22:40 → MED SURG 4 22:40
PROVIDERS: Internal Medicine; Physician Assistant; Student in an Organized Health Care Education/Training Program; ADMIT Internal Medicine
DX: A41.51 Sepsis due to Escherichia coli [E. coli] (principal); G93.41 Metabolic encephalopathy; N30.00 Acute cystitis without hematuria; I25.810 Atherosclerosis of coronary artery bypass graft(s) without angina pectoris; N17.9 Acute kidney failure, unspecified; I13.0 Hypertensive heart and chronic kidney disease with heart failure and stage 1 through stage 4 chronic kidney disease, or unspecified chronic kidney disease; I50.22 Chronic systolic (congestive) heart failure; E11.52 Type 2 diabetes mellitus with diabetic peripheral angiopathy with gangrene; Z16.24 Resistance to multiple antibiotics; Z20.822 Contact with and (suspected) exposure to COVID-19; L89.622 Pressure ulcer of left heel, stage 2; D63.1 Anemia in chronic kidney disease; E78.5 Hyperlipidemia, unspecified; J44.9 Chronic obstructive pulmonary disease, unspecified; F19.10 Other psychoactive substance abuse, uncomplicated; N18.30 Chronic kidney disease, stage 3 unspecified; L89.612 Pressure ulcer of right heel, stage 2; R65.20 Severe sepsis without septic shock; I48.0 Paroxysmal atrial fibrillation; F03.90 Unspecified dementia, unspecified severity, without behavioral disturbance, psychotic disturbance, mood disturbance, and anxiety; R53.81 Other malaise; D50.9 Iron deficiency anemia, unspecified; E11.22 Type 2 diabetes mellitus with diabetic chronic kidney disease; Z79.4 Long term (current) use of insulin; Z86.73 Personal history of transient ischemic attack (TIA), and cerebral infarction without residual deficits; Z86.14 Personal history of Methicillin resistant Staphylococcus aureus infection; Z79.01 Long term (current) use of anticoagulants; Z87.440 Personal history of urinary (tract) infections; Z95.5 Presence of coronary angioplasty implant and graft; Z87.81 Personal history of (healed) traumatic fracture; Z90.710 Acquired absence of both cervix and uterus; Z90.49 Acquired absence of other specified parts of digestive tract; Z82.49 Family history of ischemic heart disease and other diseases of the circulatory system; Z23 Encounter for immunization
CPT/HCPCS: 36415; 36430; 51701; 71045; 80048; 80053; 81001; 82550; 82553; 82607; 82728; 82746; 82962; 83540; 83550; 83605; 83690; 83735; 83874; 83880; 84100; 84484; 85025; 85652; 86140; 87040; 87077; 87086; 87150; 87186; 90686; 93005; 94640; 94664; 94760; 94762; 96372; 96374; 96375; 96376; 99285; G0008; G0378; J0696; J1335; J1650; J1940; J1956; J7030; J7120; U0002

== ENCOUNTER → 2021-06-01 | Outpatient (CLI) | payer MEDICARE, OTHER ==
[~2021-06-01] MED LIST changes: +BRILINTA60 MG PO; +COLCHICINE0.6 M1 PO; +ESCITALOPRAM OX10 MG PO; +HYDROXYUREA500 MG PO; +SULFAMETHOXAZO1 EACH PO; +ZYLOPRIM100 MG PO
== END ==
LOC: KOH-I 14:47
DX: S82.832G Other fracture of upper and lower end of left fibula, subsequent encounter for closed fracture with delayed healing (principal)
CPT/HCPCS: 73610

== ENCOUNTER → 2021-06-04 | Outpatient (CLI) | payer MEDICARE, OTHER | LOC: WCC 14:00 | DX: L89.629 Pressure ulcer of left heel, unspecified stage (principal); L89.899 Pressure ulcer of other site, unspecified stage; J44.9 Chronic obstructive pulmonary disease, unspecified; E11.52 Type 2 diabetes mellitus with diabetic peripheral angiopathy with gangrene; E11.40 Type 2 diabetes mellitus with diabetic neuropathy, unspecified; E11.59 Type 2 diabetes mellitus with other circulatory complications; I11.0 Hypertensive heart disease with heart failure; I50.9 Heart failure, unspecified; I48.20 Chronic atrial fibrillation, unspecified; F17.210 Nicotine dependence, cigarettes, uncomplicated; Z79.4 Long term (current) use of insulin; Z91.19 Patient's noncompliance with other medical treatment and regimen | CPT/HCPCS: G0463 ==

== ENCOUNTER → 2021-07-30 | Outpatient (CLI) | payer MEDICARE, OTHER | LOC: KOH-I 13:02 | DX: S82.832D Other fracture of upper and lower end of left fibula, subsequent encounter for closed fracture with routine healing (principal) | CPT/HCPCS: 73610 ==

== ENCOUNTER → 2021-08-10 | Outpatient (CLI) | payer MEDICARE, OTHER | LOC: KOH-I 11:30 | DX: R91.8 Other nonspecific abnormal finding of lung field (principal) | CPT/HCPCS: 71250 ==

== ENCOUNTER 2021-09-04 16:28 | Inpatient (IN) | payer MEDICARE, OTHER ==
[~2021-09-04] VITALS: Ht 157.5 cm; Wt 76.0 kg
[2021-09-04 17:38] LABS: HEMOGLOBIN 11.3 gm/dl (12.3-15.3); RED BLOOD COUNT 3.8 M/UL (4.00-5.10); WHITE BLOOD COUNT 5.2 K/UL (4.5-11.0)
[2021-09-05] MEDS ORDERED: ANORO ELLIPTA1 EACH INH (01:30)
[2021-09-05] MEDS ORDERED: GABAPENTIN600 MG PO (01:30)
[2021-09-05] MEDS ORDERED: ARTHRITIS PAIN50 GM TOP (01:32)
[2021-09-05] MEDS ORDERED: LANTUS SOL100 UNIT/1 SQ (02:00)
[2021-09-05 11:42] LABS: HEMOGLOBIN 10.7 gm/dl (12.3-15.3); RED BLOOD COUNT 3.63 M/UL (4.00-5.10); WHITE BLOOD COUNT 5.9 K/UL (4.5-11.0)
[2021-09-06 01:31] LABS: ACINETOBACTER BAUMANNII Not Detected (Negative); CANDIDA ALBICANS Not Detected (Negative); CANDIDA KRUSEI Not Detected (Negative); CANDIDA TROPICALIS Not Detected (Negative); ENTEROCOCCUS Not Detected (Negative); ESCHERICHIA COLI Not Detected (Negative); HAEMOPHILUS INFLUENZAE Not Detected (Negative); KLEBSIELLA OXYTOCA Not Detected (Negative); KLEBSIELLA PNEUMONIAE Not Detected (Negative); KPC-CARBAPENEM-RESISTANCE GENE Not Detected (Negative); PROTEUS Not Detected (Negative); PSEUDOMONAS AERUGINOSA Not Detected (Negative); SERRATIA MARCESANS Not Detected (Negative); STAPHYLOCOCCUS AUREUS Not Detected (Negative); STREP AGALACTIAE (GROUP B) Not Detected (Negative); STREP PYOGENES (GROUP A) Not Detected (Negative); STREPTOCOCCUS Not Detected (Negative); vanA/B (VANCOMYCIN RESIST GENE Not Detected (Negative)
[2021-09-06 02:47] LABS: STAPHYLOCOCCUS DETECTED (Negative); mecA (METHICILLIN RESIST GENE DETECTED (Negative)
[2021-09-06 05:45] LABS: HEMOGLOBIN 10.2 gm/dl (12.3-15.3); RED BLOOD COUNT 3.47 M/UL (4.00-5.10); WHITE BLOOD COUNT 4.9 K/UL (4.5-11.0)
[2021-09-07 05:27] LABS: HEMOGLOBIN 9.6 gm/dl (12.3-15.3); RED BLOOD COUNT 3.29 M/UL (4.00-5.10)
[2021-09-07 18:11] LABS: ORGANISM ID Not indicated. (.); SPECIMEN SOURCE Urine (.); STREPTOCOCCUS PNEUMONIAE AG Negative (Negative)
[2021-09-08 05:43] LABS: RED BLOOD COUNT 3.38 M/UL (4.00-5.10)
[2021-09-08 05:44] LABS: WHITE BLOOD COUNT 3.6 K/UL (4.5-11.0)
[2021-09-10 07:11] LABS: HEMOGLOBIN 10.8 gm/dl (12.3-15.3)
[2021-09-10 07:12] LABS: RED BLOOD COUNT 3.75 M/UL (4.00-5.10); WHITE BLOOD COUNT 6.3 K/UL (4.5-11.0)
[2021-09-11 08:39] LABS: HEMOGLOBIN 10.5 gm/dl (12.3-15.3); RED BLOOD COUNT 3.55 M/UL (4.00-5.10)
[2021-09-11 08:42] LABS: WHITE BLOOD COUNT 9.1 K/UL (4.5-11.0)
[2021-09-13 02:21] LABS: ADENOVIRUS F 40/41 Not Detected (Negative); ASTROVIRUS Not Detected (Negative); CAMPYLOBACTER Not Detected (Negative); CLOSTRIDIUM DIFFICILE TOX A/B Not Detected (Negative); CRYPTOSPORIDIUM Not Detected (Negative); E.COLI 0157 Not Detected (Negative); ENTAMOEBA HISTOLYTICA Not Detected (Negative); ENTEROAGGREGATIVE E.COLI (EAEC Not Detected (Negative); ENTEROPATHOGENIC E.COLI (EPEC) Not Detected (Negative); ENTEROTOXIGENIC E.COLI (ETEC) Not Detected (Negative); GIARDIA LAMBLIA Not Detected (Negative); NOROVIRUS GI/GII Not Detected (Negative); PLESIOMONAS SHIGELLOIDES Not Detected (Negative); ROTOVIRUS A Not Detected (Negative); SALMONELLA Not Detected (Negative); SAPOVIRUS Not Detected (Negative); SHIG/ENTEROINVAS.ECOLI (EIEC) Not Detected (Negative); SHIGA-LIK TOX.PRO.E.COLI (STEC Not Detected (Negative); VIBRIO Not Detected (Negative); VIBRIO CHOLERAE Not Detected (Negative); YERSINIA ENTEROCOLITICA Not Detected (Negative)
[2021-09-13 05:59] LABS: HEMOGLOBIN 11.7 gm/dl (12.3-15.3)
[2021-09-13 06:00] LABS: RED BLOOD COUNT 3.96 M/UL (4.00-5.10); WHITE BLOOD COUNT 21.8 K/UL (4.5-11.0)
--- NOTE | 2021-09-13 15:56 | NUR ---
AT 1500 TODAY RECEIVED FROM ICU. REPORT FROM SILVIO HANEY. AGREE WITH ICU NURSE ASSESSMENT. WILL CONTINUE TO MONITOR
--- NOTE | 2021-09-13 17:01 | NUR ---
DOBHOFF PLACEMENT CONFIRMED START TUBE FEED NEPRO AT 25ML/HR
[2021-09-14 07:47] LABS: HEMOGLOBIN 12.5 gm/dl (12.3-15.3); RED BLOOD COUNT 4.29 M/UL (4.00-5.10); WHITE BLOOD COUNT 17.2 K/UL (4.5-11.0)
--- NOTE | 2021-09-14 14:00 | NUR ---
VERIFIED WITH DR COMBS THAT PT DOBHOFF WAS OK TO USE AFTER GETTING REPEAT CHEST XRAY
--- NOTE | 2021-09-14 16:24 | NUR ---
NOTIFIED MD OF SPEECH RECOMMENDATION AFTER BEDSIDE EVAL. PT CHANGED TO PUREED DIET, HONEY THICK LIQUIDS, 1:1 FEED AND, AND MEDS CRUSHED IN APPLESAUCE. ALSO GOT AN ORDER TO D/C DOBHOFF AND REMOVE WRIST RESTRAINTS.
[2021-09-15 03:29] LABS: HEMOGLOBIN 12.8 gm/dl (12.3-15.3); RED BLOOD COUNT 4.32 M/UL (4.00-5.10); WHITE BLOOD COUNT 15.8 K/UL (4.5-11.0)
[2021-09-16 08:47] LABS: HEMOGLOBIN 12.7 gm/dl (12.3-15.3); RED BLOOD COUNT 4.33 M/UL (4.00-5.10); WHITE BLOOD COUNT 12.3 K/UL (4.5-11.0)
[2021-09-17 03:36] LABS: HEMOGLOBIN 12.6 gm/dl (12.3-15.3); RED BLOOD COUNT 4.14 M/UL (4.00-5.10); WHITE BLOOD COUNT 11.3 K/UL (4.5-11.0)
--- NOTE | 2021-09-18 02:43 | NUR ---
PT NOTED TO BE MOANING AND ACTING IF SHE IS HURTING. WHEN I ASK HER IF SHE IS HURTING SHE SAYS YES BUT DOESN'T SAY WHERE. NOTIFIED MD AND ORDERS RECIEVED.
[2021-09-18 03:50] LABS: HEMOGLOBIN 13.4 gm/dl (12.3-15.3); RED BLOOD COUNT 4.45 M/UL (4.00-5.10); WHITE BLOOD COUNT 11.2 K/UL (4.5-11.0)
[2021-09-19] MEDS ORDERED: ELIQUIS 5 MG TAB5 MG PO (10:44)
[2021-09-19] MEDS ORDERED: IPRAT-ALBUT 0.5-3 ML INH (10:44)
[2021-09-19] MEDS ORDERED: PROTONIX 40 MG40 MG PO (10:44)
[2021-09-19] MEDS ORDERED: HYDRALAZINE HCL50 MG PO (10:44)
[2021-09-19] MEDS ORDERED: AMLODIPINE BESYL5 MG PO (10:44)
[2021-09-19] MEDS ORDERED: MYCOSTATIN100000 UTS PO (10:44)
[2021-09-19] MEDS ORDERED: DIVALPROEX SOD125 MG PO (10:44)
--- NOTE | 2021-09-19 15:33 | NUR ---
@2047 CALLED REPORT TO KEITH CALDWELL GOING TO [facility]
== END 2021-09-19 15:20 | DRG 870 ==
LOC: ER1 16:28 → CCU 20:27 → PROG CARE 20:27 → CDU 20:27 → CCU 09-05 01:12 → PROG CARE 09-13 14:57 → M/S 09-18 15:53
PROVIDERS: Emergency Medicine; Internal Medicine; Internal Medicine Infectious Disease; Internal Medicine Nephrology; Internal Medicine Pulmonary Disease; ADMIT Family Medicine
PROC: 0BH17EZ Insertion of Endotracheal Airway into Trachea, Via Natural or Artificial Opening (ICD-10-PCS; principal; 2021-09-04)
PROC: 5A1955Z Respiratory Ventilation, Greater than 96 Consecutive Hours (ICD-10-PCS; 2021-09-04)
PROC: 8E0ZXY6 Isolation (ICD-10-PCS; 2021-09-04)
PROC: XW033E5 Introduction of Remdesivir Anti-infective into Peripheral Vein, Percutaneous Approach, New Technology Group 5 (ICD-10-PCS; 2021-09-05)
PROC: 3E033XZ Introduction of Vasopressor into Peripheral Vein, Percutaneous Approach (ICD-10-PCS; 2021-09-05)
PROC: 0DH63UZ Insertion of Feeding Device into Stomach, Percutaneous Approach (ICD-10-PCS; 2021-09-05)
PROC: 3E0G76Z Introduction of Nutritional Substance into Upper GI, Via Natural or Artificial Opening (ICD-10-PCS; 2021-09-05)
PROC: B24BZZZ Ultrasonography of Heart with Aorta (ICD-10-PCS; 2021-09-05)
PROC: XW033H5 Introduction of Tocilizumab into Peripheral Vein, Percutaneous Approach, New Technology Group 5 (ICD-10-PCS; 2021-09-07)
PROC: 5A09457 Assistance with Respiratory Ventilation, 24-96 Consecutive Hours, Continuous Positive Airway Pressure (ICD-10-PCS; 2021-09-11)
DX: A41.1 Sepsis due to other specified staphylococcus (principal); R65.21 Severe sepsis with septic shock; U07.1 COVID-19; J12.82 Pneumonia due to coronavirus disease 2019; I21.A1 Myocardial infarction type 2; J80 Acute respiratory distress syndrome; J15.9 Unspecified bacterial pneumonia; N17.0 Acute kidney failure with tubular necrosis; J15.212 Pneumonia due to Methicillin resistant Staphylococcus aureus; I50.43 Acute on chronic combined systolic (congestive) and diastolic (congestive) heart failure; G92.8 Other toxic encephalopathy; E11.52 Type 2 diabetes mellitus with diabetic peripheral angiopathy with gangrene; E87.2 Acidosis; I48.19 Other persistent atrial fibrillation; J44.0 Chronic obstructive pulmonary disease with (acute) lower respiratory infection; J44.1 Chronic obstructive pulmonary disease with (acute) exacerbation; I13.0 Hypertensive heart and chronic kidney disease with heart failure and stage 1 through stage 4 chronic kidney disease, or unspecified chronic kidney disease; N30.00 Acute cystitis without hematuria; E87.0 Hyperosmolality and hypernatremia; E87.1 Hypo-osmolality and hyponatremia; N18.30 Chronic kidney disease, stage 3 unspecified; I25.10 Atherosclerotic heart disease of native coronary artery without angina pectoris; E11.22 Type 2 diabetes mellitus with diabetic chronic kidney disease; F19.10 Other psychoactive substance abuse, uncomplicated; E11.65 Type 2 diabetes mellitus with hyperglycemia; T38.0X5A Adverse effect of glucocorticoids and synthetic analogues, initial encounter; E87.5 Hyperkalemia; L89.626 Pressure-induced deep tissue damage of left heel; L89.896 Pressure-induced deep tissue damage of other site; E78.5 Hyperlipidemia, unspecified; F41.9 Anxiety disorder, unspecified; F29 Unspecified psychosis not due to a substance or known physiological condition; K21.9 Gastro-esophageal reflux disease without esophagitis; F03.90 Unspecified dementia, unspecified severity, without behavioral disturbance, psychotic disturbance, mood disturbance, and anxiety; E87.8 Other disorders of electrolyte and fluid balance, not elsewhere classified; R13.10 Dysphagia, unspecified; Z87.440 Personal history of urinary (tract) infections; Z86.73 Personal history of transient ischemic attack (TIA), and cerebral infarction without residual deficits; Z86.14 Personal history of Methicillin resistant Staphylococcus aureus infection; Z79.01 Long term (current) use of anticoagulants; Z90.710 Acquired absence of both cervix and uterus; Z90.49 Acquired absence of other specified parts of digestive tract; Z95.1 Presence of aortocoronary bypass graft; Z82.49 Family history of ischemic heart disease and other diseases of the circulatory system; Z87.891 Personal history of nicotine dependence; Z79.4 Long term (current) use of insulin; Z99.81 Dependence on supplemental oxygen; Z23 Encounter for immunization
CPT/HCPCS: ECHO; 31500; 36415; 36600; 71045; 74018; 80048; 80053; 80202; 80307; 81001; 82550; 82553; 82728; 82803; 82962; 83605; 83615; 83735; 83880; 84100; 84484; 85025; 85027; 85379; 85384; 85610; 86140; 87040; 87070; 87077; 87081; 87086; 87150; 87186; 87205; 87278; 87507; 87899; 92526; 92610; 93005; 93306; 94002; 94003; 94640; 94660; 94664; 94760; 96365; 96366; 96367; 96372; 96375; 96376; 97110; 97162; 97166; 97530-GP-CQ; 97535; 99284; G0378; G0480; J0248; J0360; J0610; J0696; J1100; J1205; J1650; J2020; J2185; J2250; J2704; J3010; J3370; J7030; J7070; Q0249; U0002

== ENCOUNTER → 2021-10-21 | Outpatient (CLI) | payer MEDICARE, OTHER ==
[~2021-10-21] MED LIST changes: +AMLODIPINE BESYL5 MG PO; +ANORO ELLIPTA1 EACH INH; +ARTHRITIS PAIN50 GM TOP; +DIVALPROEX SOD125 MG PO; +GABAPENTIN600 MG PO; +HYDRALAZINE HCL50 MG PO; +IPRAT-ALBUT 0.5-3 ML INH; +LANTUS SOL100 UNIT/1 SQ; +MYCOSTATIN100000 UTS PO; +PROTONIX 40 MG40 MG PO
== END ==
LOC: WCC 08:29
DX: L97.409 Non-pressure chronic ulcer of unspecified heel and midfoot with unspecified severity (principal); E11.59 Type 2 diabetes mellitus with other circulatory complications; E11.40 Type 2 diabetes mellitus with diabetic neuropathy, unspecified; I48.20 Chronic atrial fibrillation, unspecified; J44.9 Chronic obstructive pulmonary disease, unspecified; E66.01 Morbid (severe) obesity due to excess calories; M79.605 Pain in left leg; L89.623 Pressure ulcer of left heel, stage 3; F15.11 Other stimulant abuse, in remission; F11.11 Opioid abuse, in remission; E11.22 Type 2 diabetes mellitus with diabetic chronic kidney disease; I13.0 Hypertensive heart and chronic kidney disease with heart failure and stage 1 through stage 4 chronic kidney disease, or unspecified chronic kidney disease; N18.30 Chronic kidney disease, stage 3 unspecified; I50.9 Heart failure, unspecified; E11.36 Type 2 diabetes mellitus with diabetic cataract; H26.9 Unspecified cataract; I25.10 Atherosclerotic heart disease of native coronary artery without angina pectoris; I25.2 Old myocardial infarction; Z79.4 Long term (current) use of insulin; Z86.16 Personal history of COVID-19; Z86.73 Personal history of transient ischemic attack (TIA), and cerebral infarction without residual deficits; Z92.21 Personal history of antineoplastic chemotherapy

== ENCOUNTER → 2021-11-02 | Outpatient (CLI) | payer MEDICARE, OTHER | LOC: WCC 08:05 | DX: L89.623 Pressure ulcer of left heel, stage 3 (principal); I11.0 Hypertensive heart disease with heart failure; I50.9 Heart failure, unspecified; E11.59 Type 2 diabetes mellitus with other circulatory complications; E11.40 Type 2 diabetes mellitus with diabetic neuropathy, unspecified; Z79.4 Long term (current) use of insulin; I48.20 Chronic atrial fibrillation, unspecified; J44.9 Chronic obstructive pulmonary disease, unspecified; E66.01 Morbid (severe) obesity due to excess calories; Z68.30 Body mass index [BMI] 30.0-30.9, adult ==

== ENCOUNTER → 2021-11-10 | Outpatient (CLI) | payer MEDICARE, OTHER | LOC: WCC 07:43 | DX: L89.623 Pressure ulcer of left heel, stage 3 (principal); E11.59 Type 2 diabetes mellitus with other circulatory complications; E11.40 Type 2 diabetes mellitus with diabetic neuropathy, unspecified; I48.20 Chronic atrial fibrillation, unspecified; J44.9 Chronic obstructive pulmonary disease, unspecified; E66.01 Morbid (severe) obesity due to excess calories; M79.662 Pain in left lower leg; F15.11 Other stimulant abuse, in remission; F11.11 Opioid abuse, in remission; I13.0 Hypertensive heart and chronic kidney disease with heart failure and stage 1 through stage 4 chronic kidney disease, or unspecified chronic kidney disease; E11.22 Type 2 diabetes mellitus with diabetic chronic kidney disease; N18.30 Chronic kidney disease, stage 3 unspecified; I50.9 Heart failure, unspecified; E11.36 Type 2 diabetes mellitus with diabetic cataract; H26.9 Unspecified cataract; I25.10 Atherosclerotic heart disease of native coronary artery without angina pectoris; I25.2 Old myocardial infarction; Z79.4 Long term (current) use of insulin; Z86.16 Personal history of COVID-19; Z86.73 Personal history of transient ischemic attack (TIA), and cerebral infarction without residual deficits ==

== ENCOUNTER → 2021-11-17 | Outpatient (CLI) | payer MEDICARE, OTHER | LOC: WCC 07:36 | DX: L89.623 Pressure ulcer of left heel, stage 3 (principal); I13.0 Hypertensive heart and chronic kidney disease with heart failure and stage 1 through stage 4 chronic kidney disease, or unspecified chronic kidney disease; I50.9 Heart failure, unspecified; E11.22 Type 2 diabetes mellitus with diabetic chronic kidney disease; N18.30 Chronic kidney disease, stage 3 unspecified; E11.59 Type 2 diabetes mellitus with other circulatory complications; E11.40 Type 2 diabetes mellitus with diabetic neuropathy, unspecified; Z79.4 Long term (current) use of insulin; I48.20 Chronic atrial fibrillation, unspecified; J44.9 Chronic obstructive pulmonary disease, unspecified; E66.01 Morbid (severe) obesity due to excess calories; Z68.30 Body mass index [BMI] 30.0-30.9, adult ==

== ENCOUNTER → 2021-12-02 | Outpatient (CLI) | payer MEDICARE, OTHER | END | disposition home or self-care (01) | LOC: WCC 07:47 | DX: L89.623 Pressure ulcer of left heel, stage 3 (principal); E11.59 Type 2 diabetes mellitus with other circulatory complications; E11.40 Type 2 diabetes mellitus with diabetic neuropathy, unspecified; M79.662 Pain in left lower leg; I48.20 Chronic atrial fibrillation, unspecified; I11.0 Hypertensive heart disease with heart failure; I50.9 Heart failure, unspecified; J44.9 Chronic obstructive pulmonary disease, unspecified; E66.01 Morbid (severe) obesity due to excess calories; Z68.30 Body mass index [BMI] 30.0-30.9, adult ==

== ENCOUNTER → 2021-12-09 | Outpatient (CLI) | payer MEDICARE, OTHER | LOC: WCC 08:17 | DX: L89.623 Pressure ulcer of left heel, stage 3 (principal); E11.59 Type 2 diabetes mellitus with other circulatory complications; E11.40 Type 2 diabetes mellitus with diabetic neuropathy, unspecified; I48.20 Chronic atrial fibrillation, unspecified; J44.9 Chronic obstructive pulmonary disease, unspecified; E66.01 Morbid (severe) obesity due to excess calories; M79.622 Pain in left upper arm; F15.11 Other stimulant abuse, in remission; F11.11 Opioid abuse, in remission; E11.22 Type 2 diabetes mellitus with diabetic chronic kidney disease; I13.0 Hypertensive heart and chronic kidney disease with heart failure and stage 1 through stage 4 chronic kidney disease, or unspecified chronic kidney disease; N18.30 Chronic kidney disease, stage 3 unspecified; I50.9 Heart failure, unspecified; E11.36 Type 2 diabetes mellitus with diabetic cataract; H26.9 Unspecified cataract; I25.10 Atherosclerotic heart disease of native coronary artery without angina pectoris; I25.2 Old myocardial infarction; Z79.4 Long term (current) use of insulin; Z86.16 Personal history of COVID-19; Z86.73 Personal history of transient ischemic attack (TIA), and cerebral infarction without residual deficits; Z92.21 Personal history of antineoplastic chemotherapy ==

== ENCOUNTER → 2021-12-21 | Outpatient (CLI) | payer MEDICARE, OTHER | LOC: WCC 08:59 | DX: L89.623 Pressure ulcer of left heel, stage 3 (principal); M79.662 Pain in left lower leg; E11.40 Type 2 diabetes mellitus with diabetic neuropathy, unspecified; E11.59 Type 2 diabetes mellitus with other circulatory complications; I11.0 Hypertensive heart disease with heart failure; I50.9 Heart failure, unspecified; I48.20 Chronic atrial fibrillation, unspecified; J44.9 Chronic obstructive pulmonary disease, unspecified; E66.01 Morbid (severe) obesity due to excess calories; Z79.4 Long term (current) use of insulin; Z79.01 Long term (current) use of anticoagulants; Z79.899 Other long term (current) drug therapy; Z68.30 Body mass index [BMI] 30.0-30.9, adult ==

== ENCOUNTER → 2021-12-29 | Outpatient (CLI) | payer MEDICARE, OTHER | END | disposition home or self-care (01) | LOC: WCC 08:32 | DX: L89.623 Pressure ulcer of left heel, stage 3 (principal); M79.662 Pain in left lower leg; E11.40 Type 2 diabetes mellitus with diabetic neuropathy, unspecified; E11.59 Type 2 diabetes mellitus with other circulatory complications; I11.0 Hypertensive heart disease with heart failure; I50.9 Heart failure, unspecified; I48.20 Chronic atrial fibrillation, unspecified; J44.9 Chronic obstructive pulmonary disease, unspecified; E66.01 Morbid (severe) obesity due to excess calories; Z79.4 Long term (current) use of insulin; Z79.01 Long term (current) use of anticoagulants; Z79.899 Other long term (current) drug therapy; Z68.30 Body mass index [BMI] 30.0-30.9, adult ==

== ENCOUNTER → 2022-01-05 | Outpatient (CLI) | payer MEDICARE, OTHER | END | disposition home or self-care (01) | LOC: WCC 08:11 | DX: L89.623 Pressure ulcer of left heel, stage 3 (principal); I11.0 Hypertensive heart disease with heart failure; I50.9 Heart failure, unspecified; I48.20 Chronic atrial fibrillation, unspecified; E11.59 Type 2 diabetes mellitus with other circulatory complications; E11.40 Type 2 diabetes mellitus with diabetic neuropathy, unspecified; M79.662 Pain in left lower leg; J44.9 Chronic obstructive pulmonary disease, unspecified; E66.01 Morbid (severe) obesity due to excess calories; Z79.4 Long term (current) use of insulin; Z79.01 Long term (current) use of anticoagulants; Z79.899 Other long term (current) drug therapy; Z68.30 Body mass index [BMI] 30.0-30.9, adult ==

== ENCOUNTER → 2022-01-26 | Outpatient (CLI) | payer MEDICARE, OTHER | LOC: WCC 08:03 | DX: L89.623 Pressure ulcer of left heel, stage 3 (principal); S91.104A Unspecified open wound of right lesser toe(s) without damage to nail, initial encounter; E11.59 Type 2 diabetes mellitus with other circulatory complications; E11.40 Type 2 diabetes mellitus with diabetic neuropathy, unspecified; I13.0 Hypertensive heart and chronic kidney disease with heart failure and stage 1 through stage 4 chronic kidney disease, or unspecified chronic kidney disease; E11.22 Type 2 diabetes mellitus with diabetic chronic kidney disease; N18.30 Chronic kidney disease, stage 3 unspecified; I50.9 Heart failure, unspecified; I48.20 Chronic atrial fibrillation, unspecified; J44.9 Chronic obstructive pulmonary disease, unspecified; E66.01 Morbid (severe) obesity due to excess calories; M79.662 Pain in left lower leg; Z79.4 Long term (current) use of insulin; Z79.01 Long term (current) use of anticoagulants; Z68.30 Body mass index [BMI] 30.0-30.9, adult ==

== ENCOUNTER → 2022-02-02 | Outpatient (CLI) | payer MEDICARE, OTHER | LOC: WCC 08:13 | DX: L89.623 Pressure ulcer of left heel, stage 3 (principal); S91.104A Unspecified open wound of right lesser toe(s) without damage to nail, initial encounter; E11.59 Type 2 diabetes mellitus with other circulatory complications; E11.40 Type 2 diabetes mellitus with diabetic neuropathy, unspecified; I48.20 Chronic atrial fibrillation, unspecified; I11.0 Hypertensive heart disease with heart failure; I50.9 Heart failure, unspecified; J44.9 Chronic obstructive pulmonary disease, unspecified; E66.01 Morbid (severe) obesity due to excess calories; M79.662 Pain in left lower leg; Z68.30 Body mass index [BMI] 30.0-30.9, adult; Z79.4 Long term (current) use of insulin ==

== ENCOUNTER → 2022-02-17 | Outpatient (CLI) | payer MEDICARE, OTHER | LOC: WCC 07:28 | DX: L89.623 Pressure ulcer of left heel, stage 3 (principal); S91.109A Unspecified open wound of unspecified toe(s) without damage to nail, initial encounter; E11.59 Type 2 diabetes mellitus with other circulatory complications; E11.40 Type 2 diabetes mellitus with diabetic neuropathy, unspecified; I48.20 Chronic atrial fibrillation, unspecified; I13.0 Hypertensive heart and chronic kidney disease with heart failure and stage 1 through stage 4 chronic kidney disease, or unspecified chronic kidney disease; E11.22 Type 2 diabetes mellitus with diabetic chronic kidney disease; N18.30 Chronic kidney disease, stage 3 unspecified; I50.9 Heart failure, unspecified; J44.9 Chronic obstructive pulmonary disease, unspecified; E66.01 Morbid (severe) obesity due to excess calories; E11.36 Type 2 diabetes mellitus with diabetic cataract; H26.9 Unspecified cataract; I25.10 Atherosclerotic heart disease of native coronary artery without angina pectoris; I25.2 Old myocardial infarction; Z79.4 Long term (current) use of insulin; Z86.16 Personal history of COVID-19; Z86.73 Personal history of transient ischemic attack (TIA), and cerebral infarction without residual deficits; Z79.01 Long term (current) use of anticoagulants; Z92.21 Personal history of antineoplastic chemotherapy; X58.XXXA Exposure to other specified factors, initial encounter ==

== ENCOUNTER → 2022-02-24 | Outpatient (CLI) | payer MEDICARE, OTHER | LOC: WCC 08:35 | DX: E11.621 Type 2 diabetes mellitus with foot ulcer (principal); L89.623 Pressure ulcer of left heel, stage 3; S91.104A Unspecified open wound of right lesser toe(s) without damage to nail, initial encounter; E11.59 Type 2 diabetes mellitus with other circulatory complications; E11.40 Type 2 diabetes mellitus with diabetic neuropathy, unspecified; I48.20 Chronic atrial fibrillation, unspecified; I11.0 Hypertensive heart disease with heart failure; I50.9 Heart failure, unspecified; J44.9 Chronic obstructive pulmonary disease, unspecified; E66.01 Morbid (severe) obesity due to excess calories; Z68.30 Body mass index [BMI] 30.0-30.9, adult; Z79.4 Long term (current) use of insulin; Z79.01 Long term (current) use of anticoagulants; Z79.899 Other long term (current) drug therapy ==

== ENCOUNTER → 2022-03-23 | Outpatient (CLI) | payer MEDICARE, OTHER | LOC: WCC 07:07 | DX: E11.621 Type 2 diabetes mellitus with foot ulcer (principal); L89.623 Pressure ulcer of left heel, stage 3; S91.2 Open wound of toe with damage to nail; E11.42 Type 2 diabetes mellitus with diabetic polyneuropathy; E11.59 Type 2 diabetes mellitus with other circulatory complications; I11.0 Hypertensive heart disease with heart failure; I50.9 Heart failure, unspecified; J44.9 Chronic obstructive pulmonary disease, unspecified; I48.20 Chronic atrial fibrillation, unspecified; E66.01 Morbid (severe) obesity due to excess calories; M79.662 Pain in left lower leg; Z79.4 Long term (current) use of insulin | CPT/HCPCS: G0463 ==